=== PATIENT | male | born 1955 | race Caucasian/White ===

== ENCOUNTER 2019-02-27 08:58 | Outpatient (CLI) | payer OTHER ==
[2019-02-27] MEDS ORDERED: B12 (09:35)
[2019-02-27] MEDS ORDERED: SUMA6PEN2 IM (09:35)
[2019-02-27] MEDS ORDERED: VITAMIN D3 (09:35)
[2019-02-27] MEDS ORDERED: LISI2.5T PO (09:35)
[2019-02-27] MEDS ORDERED: TOPI25TA8 PO (09:35)
[2019-02-27] MEDS ORDERED: SUMA100T4 PO (09:35)
[2019-02-27] MEDS ORDERED: ATOR20TA37 PO (09:35)
[2019-02-27] MEDS ORDERED: AMLO2.5T5 PO (09:35)
[2019-02-27] MEDS ORDERED: DOXY100T PO (09:35)
[2019-02-27] MEDS ORDERED: VIT-5 PO (09:35)
[2019-02-27] MEDS ORDERED: ZINC (09:35)
[2019-02-27] MEDS ORDERED: ESOM20CA PO (09:35)
[2019-02-27] MEDS ORDERED: RIZA10TA20 PO (09:35)
[2019-02-27] MEDS ORDERED: METH500T7 PO (09:35)
[2019-02-27] MEDS ORDERED: CO Q10 (09:35)
[2019-02-27 10:08] LABS: BASOPHILS # (AUTO) 0.02 x10^3/uL (0-0.1); BASOPHILS % (AUTO) 0 % (0-1); EOSINOPHILS # (AUTO) 0.06 x10^3/uL (0-0.4); EOSINOPHILS % (AUTO) 1 % (1-7); LYMPHOCYTES # (AUTO) 1.43 x10^3/uL (1-3.4); LYMPHOCYTES % (AUTO) 22 % (22-44); MD NO; MEAN CORPUSCULAR HEMOGLOBIN 30.9 pg (27.5-34.5); MEAN CORPUSCULAR HGB CONC 32.5 g/dL (33.2-36.2); MEAN PLATELET VOLUME 8.8 fL (7.4-10.4); MONOCYTES # (AUTO) 0.46 x10^3/uL (0.2-0.8); MONOCYTES % (AUTO) 7 % (2-9); NEUTROPHILS # (AUTO) 4.44 x10^3/uL (1.8-6.8); NEUTROPHILS % (AUTO) 69 % (42-75); PLATELET COUNT 164 x10^3/uL (130-400); RED BLOOD COUNT 5.35 x10^6/uL (4.38-5.82); RED CELL DISTRIBUTION WIDTH 13.2 % (9.4-14.8)
[2019-02-27 10:16] LABS: INTERNATIONAL NORMALIZED RATIO 1.05 (0.93-1.1)
[2019-02-27 10:18] LABS: ALBUMIN 4.3 g/dL (3.4-5.0); ANION GAP 7 mmol/L (5-15); CALCIUM 9.3 mg/dL (8.5-10.1); CHLORIDE 109 mmol/L (98-107)
[2019-02-27 10:21] LABS: ALANINE AMINOTRANSFERASE 46 U/L (12-78); ALKALINE PHOSPHATASE 123 U/L (45-117); BILIRUBIN,TOTAL 0.6 mg/dL (0.2-1.0); CREATININE 1.22 mg/dL (0.7-1.3); TOTAL PROTEIN 7.4 g/dL (6.4-8.2)
== END 2019-02-27 23:59 | disposition home or self-care (01) ==
LOC: STAR 08:58
PROVIDERS: ATTEND Neurological Surgery
DX: Z01.818 Encounter for other preprocedural examination (principal); M48.02 Spinal stenosis, cervical region
CPT/HCPCS: 36415; 80053; 85025; 85610; 85730; 93005